=== PATIENT | male | born 1960 | race Caucasian/White ===

== ENCOUNTER 2023-06-23 15:19 | Outpatient (RCR) | payer OTHER, SELFPAY | END 2023-06-23 23:59 | disposition home or self-care (01) | LOC: RPT 15:19 | PROVIDERS: ATTENDING PHYSICIAN Family Medicine Sports Medicine; FAMILY PHYSICIAN Family Medicine | DX: M17.12 Unilateral primary osteoarthritis, left knee (principal); Z73.6 Limitation of activities due to disability | CPT/HCPCS: 97010; 97110; 97112; 97161 ==

== ENCOUNTER → 2023-08-08 17:07 | Outpatient (REF) | payer OTHER, SELFPAY | LOC: RAD 17:07 | PROVIDERS: ATTENDING PHYSICIAN Nurse Practitioner Family | DX: M25.512 Pain in left shoulder (principal); M25.522 Pain in left elbow | CPT/HCPCS: 73030; 73080 ==

== ENCOUNTER 2023-10-03 18:01 | Outpatient (RCR) | payer OTHER, SELFPAY | END 2023-10-03 23:59 | disposition home or self-care (01) | LOC: RPT 18:01 | PROVIDERS: ATTENDING PHYSICIAN Family Medicine Sports Medicine; FAMILY PHYSICIAN Family Medicine | DX: M17.12 Unilateral primary osteoarthritis, left knee (principal); Z73.6 Limitation of activities due to disability | CPT/HCPCS: 97110; 97162 ==

== ENCOUNTER 2023-10-19 17:06 | Outpatient (RCR) | payer OTHER, SELFPAY | END 2023-10-20 07:15 | disposition home or self-care (01) | LOC: RPT 17:06 | PROVIDERS: ATTENDING PHYSICIAN Family Medicine Sports Medicine; FAMILY PHYSICIAN Family Medicine | DX: M17.12 Unilateral primary osteoarthritis, left knee (principal); Z73.6 Limitation of activities due to disability | CPT/HCPCS: 97110; 97530 ==

== ENCOUNTER → 2024-04-25 17:17 | Outpatient (REF) | payer OTHER, SELFPAY | LOC: RAD 17:17 | PROVIDERS: ATTENDING PHYSICIAN Physician Assistant; FAMILY PHYSICIAN Family Medicine | DX: R10.10 Upper abdominal pain, unspecified (principal); K82.4 Cholesterolosis of gallbladder | CPT/HCPCS: 76700 ==

== ENCOUNTER 2024-07-03 17:38 | Emergency (ER) | payer OTHER, SELFPAY ==
[2024-07-03 17:40] VITALS: BP 150/98
[2024-07-03 17:56] VITALS: BMI 29.7
--- NOTE | 2024-07-03 23:17 | ED.GENMED ---
History of Present Illness
General
Chief Complaint: Foreign Body Removal
Source: patient
Exam Limitations: none
Time Seen by Provider: 07/03/24 19:04
Nursing documentation reviewed up to this point in time: agreed with
History of Present Illness
History of Present Illness:
Patient to ED for eval of foreign body to plantar surface of left foot. He states he was in [place] vacationing last week when pain started. He was seen at today and Xray confirmed small FB at ball of foot. attempted to retrieve fb but
unsuccessfully. He was referred to podiatry but office was closing so he was then advised tocome to ED. Denies fever/chills, redness,swelling, drainage. Unsure when FB occured.
Past History
Past History
ED Past Medical History: GERD
ED Past Surgical History: None
Social History
Tobacco: Non-smoker
Alcohol: None
Drug: None
Personal:
Living: alone
Review of Systems
Review of Systems
Allergies reviewed?: Yes
All Other Systems: ROS reviewed and negative except as documented in HPI and ROS
Constitutional: Reports no symptoms
Musculoskeletal: Reports no symptoms
Skin: Reports other (pain, skin FB ball of left foot.)
Neurological: Reports no symptoms
Psychiatric: Reports no symptoms
Phy Exam
General Physical Exam
General Presentation: well appearing and no apparent distress
General age: appears stated age
General Skin: warm and dry
General Habitus: normal
General Mental: alert
Musculoskeletal Exam
Musculoskeletal Exam: full ROM, neuro vasc intact and other (pain to ball of left foot, deep small FB visualized on CT. No redness or swelling to foot)
Skin Exam
Skin Exam: normal color, warm/dry and no rash
Psychiatric Exam
Psychiatric Exam: normal mood/affect
Course
Vital Signs
Initial and Last Documented VS:
Initial Vital Signs
Temp Pulse Resp BP Pulse Ox
98.4 F 82 18 150/98 98
07/03/24 17:40 07/03/24 17:40 07/03/24 17:40 07/03/24 17:40 07/03/24 17:40
Last Documented Vital Signs
Temp Pulse Resp BP Pulse Ox
98.4 F 82 18 150/98 98
07/03/24 17:40 07/03/24 17:40 07/03/24 17:40 07/03/24 17:40 07/03/24 17:40
*Critical Care Note
Total Time (30-74mins, 75-104mins- exclusive of procedures): Not Applicable
Update Note
Update Note:
FB to ball of left foot. Injury occured last week. Xray from reviewed. Object is small and deep and will need to be removed by podiatry. He was given rx for antibiotics by . WIll call podiatry in AM. Placed on crutches to avoid pushing FB
deeper into soft tissue. He was ginve instructions on s/s infection, s/s to return to ED and he is agreeable to plan.
ED Attending Note
-
Portions of this chart may have been created with voice recognition software.� Occasional wrong word or��sound alike� substitutions may have occurred due to the inherent limitations of voice recognition software.
Discharge Plan
Departure
Patient Disposition: Home (Routine Discharge)
Date of Disposition: 07/03/24
Time of Disposition: 19:25
Patient with high blood pressure during this ER visit?: No
Condition: Good
Covid-19: Not Applicable
Discharge Problem:
Foreign body in foot
Instructions: Foreign Body in Skin (DC), How to use crutches
Prescriptions:
No Action
pantoprazole [Protonix] 40 mg Tablet,Delayed Release (Dr/Ec)
40 mg PO BID
Referrals:
Ravi Mustafa MD [Family Provider] -
Sapna Clarke I., DO [Active] - Call in 1-3 days for appt
Stand Alone Forms: Return to Work
Interventions
Interventions:
*Risk Screen - Suicide Last Done: 07/03/24 17:40
*General Assessment Last Done: 07/03/24 17:40
*Neglect/Abuse Screening Last Done: 07/03/24 17:40
*ED- Fall Risk Assessment Last Done: 07/03/24 17:40
*ED COVID-19 Vaccine History Last Done: 07/03/24 17:40
*Nursing Disposition Last Done: 07/03/24 19:42
Discharge Date and Time
Discharge Date/Time: 07/03/24 19:44
Print Language: PASHTO
== END 2024-07-03 19:44 | disposition home or self-care (01) ==
LOC: EMR 17:38
PROVIDERS: EMERGENCY PHYSICIAN Student in an Organized Health Care Education/Training Program; FAMILY PHYSICIAN Family Medicine
DX: S90.852A Superficial foreign body, left foot, initial encounter (principal); W45.8XXA Other foreign body or object entering through skin, initial encounter
CPT/HCPCS: 99282

== ENCOUNTER → 2024-07-10 15:57 | Outpatient (REF) | payer OTHER, SELFPAY | LOC: RCS 15:57 | PROVIDERS: ATTENDING PHYSICIAN Student in an Organized Health Care Education/Training Program; FAMILY PHYSICIAN Physician Assistant | DX: Z01.818 Encounter for other preprocedural examination (principal) | CPT/HCPCS: 93005 ==